=== PATIENT | male | born 1995 | race Caucasian/White ===

== ENCOUNTER 2020-09-11 15:02 | Emergency (ER) | payer OTHER, SELFPAY ==
[2020-09-11 15:31] VITALS: BP 146/90; PULSE 97; RESP 18; TEMP 36.7; O2SAT 97; BMI 21.0
--- NOTE | 2020-09-11 15:43 | XR_ITS ---
EXAMINATION: XR CHEST CLINICAL INFORMATION: Shortness of breath COMPARISON: None TECHNIQUE: Frontal view of the chest was obtained. FINDINGS: No significant abnormality is noted involving the heart, lungs, mediastinum, bony thorax or soft tissues. XR/XR chest 1V IMPRESSION: Unremarkable examination.
--- NOTE | 2020-09-11 15:44 | ECG_ITS ---
Test Reason : CHEST PAIN Blood Pressure : / mmHG Vent. Rate : 084 BPM Atrial Rate : 084 BPM P-R Int : 138 ms QRS Dur : 084 ms QT Int : 356 ms P-R-T Axes : 081 043 051 degrees QTc Int : 420 ms Normal sinus rhythm with sinus arrhythmia Nonspecific T wave abnormality Borderline ECG No previous ECGs available Referred By: Risa Martinez Electronically Signed By:BURT SAMUEL MD
[2020-09-11 16:11] LABS: Basophils Percent Auto 0.5 % (0-2); Eosinophils Absolute Auto 0.2 X10*3/uL (0.0-0.4); Hematocrit 47.9 % (42-52); Hemoglobin 15.8 g/dl (14.0-18.0); Imm Gran Abs Auto 0.01 X10*3/uL (0.00-0.03); Imm Gran Pct Auto 0.2 % (0.0-0.4); Lymphocytes Absolute Auto 1.3 X10*3/uL (1.2-4.9); Lymphocytes Percent Auto 21.5 % (20-40); MANUAL DIFF FLAG NO; Mean Corpuscular Hemoglobin 28.2 pg (27.0-33.0); Mean Corpuscular Volume 85.4 fL (80-98); Monocytes Absolute Auto 0.5 X10*3/uL (0.1-1.2); Monocytes Percent Auto 7.7 % (2-11); Neutrophils Percent Auto 67.1 % (45-73); Platelet Count 243 X10*3/uL (160-400); Red Blood Count 5.61 X10*6/uL (4.60-5.80); White Blood Count 5.9 X10*3/uL (4.8-10.8)
[2020-09-11 16:13] VITALS: RESP 18
--- NOTE | 2020-09-11 16:16 | PC.NURSE ---
patient a&ox3, iv inserted, labs drawn, culture taken by provider, ekg performed, pt has rll in/ex wheezing, vss, will continue to monitor.
[2020-09-11] MEDS: Albuterol/Iprat 2.5/0.5MG 3 ML AMPUL.NEB INHALE (16:26)
--- NOTE | 2020-09-11 16:32 | CT_ITS ---
EXAMINATION: CT ABDOMEN AND PELVIS WITH CONTRAST CLINICAL INFORMATION: Increased difficulty urinating. COMPARISON: None TECHNIQUE: Multidetector volumetric images were obtained from the superior aspect of the liver through the pubic symphysis following administration 85 mL of Omnipaque 350 intravenous contrast. Sagittal and coronal reformatted images were obtained on the technologist's workstation. Oral contrast: No This CT examination was performed using dose optimization techniques as appropriate, variously including the following: *Automated exposure control *Adjustment of mA and/or kV according to patient size (this includes techniques or standardized protocols for targeted exams where dose is matched to indication/reason for exam; i.e. extremities or head) *Use of iterative reconstruction technique DLP: 364 mGy-cm FINDINGS: LUNG BASES: The visualized lung bases are unremarkable. LIVER, GALLBLADDER, AND BILIARY TREE: The liver is normal in size, shape, and attenuation. No focal hepatic lesion or biliary ductal dilatation is present. The gallbladder is unremarkable with no evidence of radiopaque gallstones, gallbladder wall thickening, or obvious pericholecystic inflammatory changes. PANCREAS: Unremarkable. SPLEEN: Unremarkable. ADRENAL GLANDS: Unremarkable. KIDNEYS AND URETERS: The kidneys are normal in size, shape, and attenuation. No hydronephrosis, hydroureter, or calculi seen. No perinephric stranding. BLADDER: Unremarkable. GASTROINTESTINAL TRACT: The small and large bowel are unremarkable. The appendix is unremarkable. ABDOMINAL WALL: No significant hernia is appreciated. LYMPH NODES: Normal. VASCULAR: Unremarkable. PELVIC VISCERA: Unremarkable. OSSEOUS STRUCTURES: Unremarkable. CT/CT abdomen pelvis w con IMPRESSION: No acute abnormality CT scan abdomen and pelvis.
[2020-09-11 16:36] LABS: Anion Gap 14 (12-20); Blood Urea Nitrogen 15 mg/dL (9-16); Calcium 9.7 mg/dL (8.4-10.2); Carbon Dioxide 25 mmol/L (22-29); Chloride 106 mmol/L (96-108); Creatinine Clr Calc Pharmacy 129.8; Estimated Glomerular Filt Rate > 60; Glucose Random 100 mg/dL (60-115); Potassium 4.4 mmol/l (3.3-5.1); Sodium 141 mmol/L (135-145)
[2020-09-11] MEDS: iohexoL 350 MG/ML 100 ML INFUS..BTL IV (17:03)
[2020-09-11 17:37] VITALS: BP 144/74; PULSE 80; RESP 18; TEMP 36.7; O2SAT 97
--- NOTE | 2020-09-11 17:37 | PC.NURSE ---
patient a&ox3, urine obtained, vss, will continue to monitor.
[2020-09-11 17:50] LABS: Glucose Urine UA NEG (NEG); Leukocyte Esterase Urine NEG (NEG); Nitrite Urine NEG (NEG); PH 6.5 (5.0-8.0); Urine Blood TRACE (NEG); Urine Ketones NEG (NEG); Urine Protein NEG (NEG-TRACE)
[2020-09-11 17:51] LABS: Appearance Urine CLEAR; Color Urine YELLOW
[2020-09-11 17:57] LABS: RBC Urine 0-2 /HPF (0); WBC Urine 0 /HPF (0-4)
[2020-09-11 18:07] LABS: INTERNATIONAL NORM RATIO 1.1 (0.9-1.1); Prothrombin Time 13.4 SEC (10.8-13.0)
--- NOTE | 2020-09-11 18:09 | ED_ITS ---
HPI - General Adult General Chief complaint: General Medical Stated complaint: urinary problem Time Seen by Provider: 09/11/20 15:33 Source: patient Mode of arrival: ambulatory Limitations: no limitations History of Present Illness HPI narrative: 25yoM c PMHx of asthma and urethral stricture repair presenting to the ED with complaints of increased urination with small amounts of hematuria, diaphoresis and slow flow of urine for the past 5 months. Also reports within the last week he developed a rash to the tip/head of his penis. Reports he was sexually active with his girlfriend for over 2 years and did not use protection. Denies any other sexual intercourse with any other partners. Denies thoughts of STDs at this time. Patient's 2nd complaint is a cough with wheezing for the past few days. Reports he was tested for COVID on Tuesday which was negative. Denies any other symptoms complaints or concerns at this time. Related Data Previous Rx's Medication Instructions Recorded fluconazole 150 mg PO Q3D #2 tab 09/11/20 levalbuterol HCl [Xopenex] 0.63 mg INHALATION TID PRN #72 ml 09/11/20 nystatin 1 applic TOPICAL QID #30 g 09/11/20 prednisone 40 mg PO DAILY 5 Days #10 tab 09/11/20 Allergies Allergy/AdvReac Type Severity Reaction Status Date / Time seafood Allergy Anaphylaxis Verified 09/11/20 15:25 Review of Systems Review of Systems: Constitutional : No Weight loss, No Fever, + Chills, No Night Sweats, No Fatigue, No Malaise ENT/Mouth : No Hearing loss, No Ear Pain, No Nasal Congestion, No Sinus Pain, No Hoarseness, No sore throat, No Rhinorrhea, No Swallowing Difficulty Eyes: No Eye Pain, No Swelling, No Redness, No Foreign Body, No Discharge, No Vision Changes Cardiovascular : No Chest Pain, No SOB, No Dyspnea on Exertion, No Orthopnea, No Edema, No Palpitations Respiratory : + Cough, No Sputum, + Wheezing, No Smoke Exposure, No Dyspnea Gastrointestinal : No Nausea, No Vomiting, No Diarrhea, No Constipation, No abdominal Pain, No Hematochezia, No Melena Genitourinary : no irregular bleeding, No Dysuria, No Urinary Frequency, + Hematuria, No Urinary Incontinence, No Urgency, No Flank Pain, + Urinary Flow Changes, No Hesitancy Musculoskeletal : No joint pain, No Myalgias, No Joint Swelling Skin : No Skin Lesions, No rash Neuro : No Weakness, No Numbness, No Paresthesias, No Loss of Consciousness, No Dizziness, No Headache Psych : No Anxiety/Panic, No Depression, No SI/HI/AH/VH, No Social Issues, Heme/Lymph: No Bruising, No Bleeding,No Lymphadenopathy Endocrine : No Polyuria, No Polydipsia, No Temperature Intolerance Yes all other systems are reviewed and are negative [facility] Past Medical History Attestation statement: The following information was validated with the patient. Medical History Asthma Urethral stricture Social History Social History Alcohol intake: never Smoking Status: Current every day smoker Use of substances other than those prescribed or required for medical reasons: Yes Substance Use Type: Marijuana Substance Use Frequency: Occasionally Advance Directives: No Advance Directives Information Provided: No Physical Exam Vital Signs: Vital Signs: Last Vital Signs Temp 98.1 F 09/11/20 17:37 Pulse 80 09/11/20 17:37 Resp 18 09/11/20 17:37 BP 144/74 H 09/11/20 17:37 Pulse Ox 97 09/11/20 17:37 Body Mass Index 21.0 vital signs have been reviewed as normal and appeared to be correct. Blood pressure normal. Heart rate normal. Respiration rate normal. Temperature normal. Oxygen saturation normal. Appearance: Alert. Oriented X3. No acute distress. Head: Normal external exam. Normocephalic. Atraumatic. No Kuhn signs noted. No raccoon eyes noted Eyes: PERRLA. EOMI. Conjunctiva and sclera normal. Eyelids normal. ENT: EAC normal. TM's Normal. Pharynx normal. Uvula midline. Moist mucous membranes. No trismus noted. No drooling noted. No muffled voice noted. Neck: Normal inspection. Neck supple. FROM. No adenopathy. Thyroid Normal. No meningeal signs. No neck mass noted. CVS: Normal heart rate and rhythm. Heart sound normal. No murmurs noted. Pulses normal throughout. Respiratory: No respiratory distress. Painless inspiration. Breath sounds normal. Mild expiratory wheezing throughout. No rales/rhonchi noted. Chest nontender. No accessory muscle usage noted or decreased air movement noted. Abdomen: Soft and nontender. Bowel sounds normal in all 4 quadrants. No distention noted. No organomegaly noted. No visible injury noted. : erythema with a curd-like and ulcerations noted. Patsy TELLEZ at bedside at the time of the exam. Back: No CVA tenderness. Full range of motion noted. Skin: Skin warm and dry. Normal skin color. Normal skin turgor. No rashes/lesions/lacerations noted. Extremities: No lower extremity edema. Extremities exhibit normal range of motion. Extremities nontender. Neuro: Oriented X 3. No motor deficit. No sensory deficit. Reflexes normal. Course Course Course Narrative: 15:43 - 25yoM c PMHx of asthma and urethral stricture repair presenting to the ED with complaints of increased urination with small amounts of hematuria, diaphoresis and slow flow of urine for the past 5 months and a rash to the tip/head of his penis. Denies thoughts of STDs at this time. Patient's 2nd complaint is a cough with wheezing for the past few days. Reports he was tested for COVID on Tuesday which was negative. Denies any other symptoms complaints or concerns at this time. - concern for enlarged prostate versus UTI versus gonorrhea/chlamydia versus herpes versus balanitis. Pneumonia versus asthma exacerbation. Plan: Labs, CXR, CT scan of abd/pelvis c IV contrast, us, gonorrhea/chlamydia culture, herpes culture. Provide breathing treatment and re-evaluate. Reevaluation(s) Reevaluation #1: All labs within normal limits. CT scan of abdomen and pelvis within normal limits no acute processes noted. Chest x-ray within normal limits no acute processes noted. UA within normal limits no evidence of UTI or hematuria. Patient has gonorrhea/chlamydia and herpes cultures pending at this time will not treat as patient is not concerned for any STDs at this time. Sexually active with his girlfriend for over 2 years. Denies any additional partners. - will DC home with antifungal medication for balanitis infection along with symptomatic treatment for his asthma exacerbation than instructions to return if any new or worsening symptoms to follow-up with primary care provider along with urologist. Patient understands agrees with this plan. Time: 18:20 Medical Decision Making Medical Records Medical records reviewed: Yes I reviewed the patient's medical records. Lab Data Lab results reviewed: Yes I reviewed the patient's lab results. Result diagrams: 09/11/20 16:04 09/11/20 16:04 Labs: Lab Results 09/11/20 09/11/20 09/11/20 Range/Units 16:04 16:04 16:04 WBC 5.9 (4.8-10.8) X10*3/uL RBC 5.61 (4.60-5.80) X10*6/uL Hgb 15.8 (14.0-18.0) g/dl Hct 47.9 (42-52) % MCV 85.4 (80-98) fL MCH 28.2 (27.0-33.0) pg MCHC 33.0 (31.0-36.0) g/dl RDW 12.0 (11.0-16.0) % Plt Count 243 (160-400) X10*3/uL MPV 11.0 (9.4-12.4) fL Immature Gran % (Auto) 0.2 (0.0-0.4) % Neut % (Auto) 67.1 (45-73) % Lymph % (Auto) 21.5 (20-40) % [place] % (Auto) 7.7 (2-11) % Eos % (Auto) 3.0 (0-4) % Baso % (Auto) 0.5 (0-2) % Lymph # (Auto) 1.3 (1.2-4.9) X10*3/uL [place] # (Auto) 0.5 (0.1-1.2) X10*3/uL Eos # (Auto) 0.2 (0.0-0.4) X10*3/uL Baso # (Auto) 0.0 (0.0-0.2) X10*3/uL Abs Immat Gran (auto) 0.01 (0.00-0.03) X10*3/uL Absolute Neuts (auto) 4.0 (2.0-8.3) X10*3/uL Absolute Nucleated RBC 0.000 (0.0-0.012) X10*3/uL Nucleated RBC % (auto) 0.0 (0.0-0.2) /100WBC Hold Purple Top PT 13.4 H (10.8-13.0) SEC INR 1.1 (0.9-1.1) Sodium 141 (135-145) mmol/L Potassium 4.4 (3.3-5.1) mmol/l Chloride 106 (96-108) mmol/L Carbon Dioxide 25 (22-29) mmol/L Anion Gap 14 (12-20) BUN 15 (9-16) mg/dL Creatinine 0.85 (0.5-1.4) mg/dL Estim Creat Clear Calc 129.8 Estimated GFR > 60 Random Glucose 100 (60-115) mg/dL Calcium 9.7 (8.4-10.2) mg/dL Magnesium 2.0 (1.6-2.6) mg/dL Urine Color Urine Appearance Urine pH (5.0-8.0) Ur Specific [place] (1.005-1.025) Urine Protein (NEG-TRACE) MG/DL Urine Glucose (UA) (NEG) MG/DL Urine Ketones (NEG) MG/DL Urine Blood (NEG) Urine Nitrite (NEG) Ur Leukocyte Esterase (NEG) Urine RBC (0) /HPF Urine WBC (0-4) /HPF Ur Squamous Epith Cells /LPF Urine Bacteria /LPF 09/11/20 09/11/20 Range/Units 16:04 17:36 WBC (4.8-10.8) X10*3/uL RBC (4.60-5.80) X10*6/uL Hgb (14.0-18.0) g/dl Hct (42-52) % MCV (80-98) fL MCH (27.0-33.0) pg MCHC (31.0-36.0) g/dl RDW (11.0-16.0) % Plt Count (160-400) X10*3/uL MPV (9.4-12.4) fL Immature Gran % (Auto) (0.0-0.4) % Neut % (Auto) (45-73) % Lymph % (Auto) (20-40) % [place] % (Auto) (2-11) % Eos % (Auto) (0-4) % Baso % (Auto) (0-2) % Lymph # (Auto) (1.2-4.9) X10*3/uL [place] # (Auto) (0.1-1.2) X10*3/uL Eos # (Auto) (0.0-0.4) X10*3/uL Baso # (Auto) (0.0-0.2) X10*3/uL Abs Immat Gran (auto) (0.00-0.03) X10*3/uL Absolute Neuts (auto) (2.0-8.3) X10*3/uL Absolute Nucleated RBC (0.0-0.012) X10*3/uL Nucleated RBC % (auto) (0.0-0.2) /100WBC Hold Purple Top SEE NOTE PT (10.8-13.0) SEC INR (0.9-1.1) Sodium (135-145) mmol/L Potassium (3.3-5.1) mmol/l Chloride (96-108) mmol/L Carbon Dioxide (22-29) mmol/L Anion Gap (12-20) BUN (9-16) mg/dL Creatinine (0.5-1.4) mg/dL Estim Creat Clear Calc Estimated GFR Random Glucose (60-115) mg/dL Calcium (8.4-10.2) mg/dL Magnesium (1.6-2.6) mg/dL Urine Color YELLOW Urine Appearance CLEAR Urine pH 6.5 (5.0-8.0) Ur Specific [place] 1.020 (1.005-1.025) Urine Protein NEG (NEG-TRACE) MG/DL Urine Glucose (UA) NEG (NEG) MG/DL Urine Ketones NEG (NEG) MG/DL Urine Blood TRACE (NEG) Urine Nitrite NEG (NEG) Ur Leukocyte Esterase NEG (NEG) Urine RBC 0-2 (0) /HPF Urine WBC 0 (0-4) /HPF Ur Squamous Epith Cells NONE /LPF Urine Bacteria NONE /LPF Imaging Data Chest x-ray: Attestation: I personally reviewed and interpreted this imaging study as follows: Radiologist's impression: FINDINGS: No significant abnormality is noted involving the heart, lungs, mediastinum, bony thorax or soft tissues. XR/XR chest 1V IMPRESSION: Unremarkable examination. CT scan - abdomen: Attestation: I personally reviewed and interpreted this imaging study as follows: Radiologist's impression: FINDINGS: LUNG BASES: The visualized lung bases are unremarkable. LIVER, GALLBLADDER, AND BILIARY TREE: The liver is normal in size, shape, and attenuation. No focal hepatic lesion or biliary ductal dilatation is present. The gallbladder is unremarkable with no evidence of radiopaque gallstones, gallbladder wall thickening, or obvious pericholecystic inflammatory changes. PANCREAS: Unremarkable. SPLEEN: Unremarkable. ADRENAL GLANDS: Unremarkable. KIDNEYS AND URETERS: The kidneys are normal in size, shape, and attenuation. No hydronephrosis, hydroureter, or calculi seen. No perinephric stranding. BLADDER: Unremarkable. GASTROINTESTINAL TRACT: The small and large bowel are unremarkable. The appendix is unremarkable. ABDOMINAL WALL: No significant hernia is appreciated. LYMPH NODES: Normal. VASCULAR: Unremarkable. PELVIC VISCERA: Unremarkable. OSSEOUS STRUCTURES: Unremarkable. CT/CT abdomen pelvis w con IMPRESSION: No acute abnormality CT scan abdomen and pelvis. Discharge Plan Discharge Clinical Impression: Balanitis, Asthma exacerbation Patient Disposition: Home, Self-Care Instructions: Jessica (ED) Additional Instructions: You have pending lab results if any are positive you will be contacted within 7 days. Prescriptions: New nystatin 100,000 unit/gram ointment 1 applic topical QID Qty: 30 RF: 0 fluconazole 150 mg tablet 150 mg PO Q3D Qty: 2 RF: 0 prednisone 20 mg tablet 40 mg PO DAILY 5 Days Qty: 10 RF: 0 levalbuterol HCl [Xopenex] 0.63 mg/3 mL solution for nebulization 0.63 mg inhalation TID PRN (Reason: shortness of breath or wheezing) Qty: 72 RF: 0 Referrals: Sergio Ignacio MD [Physician] - 2 days Emeli Whiting [Emergency Nurse] - 2 days Print Language: Uzbek
[2020-09-12 10:29] LABS: CT PCR NOT DETECTED (Not Detect.); NG PCR NOT DETECTED (Not Detect.)
== END 2020-09-11 18:46 | disposition home or self-care (01) ==
PROVIDERS: Physician Assistant Medical; Emergency Provider Emergency Medicine
DX: N48.1 Balanitis (principal); J45.901 Unspecified asthma with (acute) exacerbation; Z79.899 Other long term (current) drug therapy
CPT/HCPCS: 36415; 71045; 74177; 80048; 81001; 83735; 85025; 85610; 87255; 87491; 87591; 93005; 94640; 99284; Q9967

== ENCOUNTER → 2020-09-17 15:55 | Outpatient (BNVA) | payer OTHER, SELFPAY | PROVIDERS: Visit Provider Urology | DX: Z76.89 Persons encountering health services in other specified circumstances (principal) ==

== ENCOUNTER → 2021-01-02 08:49 | Outpatient (BNVA) | payer OTHER, SELFPAY | PROVIDERS: Visit Provider Urology ==

== ENCOUNTER → 2021-01-08 11:07 | Outpatient (BNVA) | payer OTHER, SELFPAY | PROVIDERS: Visit Provider Urology | DX: N35.919 Unspecified urethral stricture, male, unspecified site (principal) | CPT/HCPCS: 52000; 81002 ==

== ENCOUNTER 2021-01-23 10:12 | Day surgery (SDC) | payer OTHER, SELFPAY ==
--- NOTE | 2021-01-22 10:08 | P.CONAN_ITS ---
Documented by User: Mireya Everett 01/22/21 10:09 HPI - Anesthesia Eval Consult details Narrative: 25yo M for Cystoscopy Internal Urethrotomy [facility] Active Problems Active Problems: All Active Problems (Updated 09/17/20 @ 16:22 by Sergio Ignacio MD) Urethral stricture (Acute) Past Medical History Medical History Asthma Urethral stricture Social History Social History Alcohol intake: never Smoking Status: Current every day smoker Substance Use Type: Marijuana Have you been hit, kicked, punched, or otherwise hurt by someone within the past year? If so, by whom?: No Advance Directives: No Advance Directives Information Provided: No Meds Allergies Allergy/AdvReac Type Severity Reaction Status Date / Time seafood Allergy Anaphylaxis Verified 09/11/20 15:25 Exam Exam Date and Time: January 22, 2021 100 Narrative Narrative: EKG 08/2020 Vent. Rate : 084 BPM Atrial Rate : 084 BPM P-R Int : 138 ms QRS Dur : 084 ms QT Int : 356 ms P-R-T Axes : 081 043 051 degrees QTc Int : 420 ms Normal sinus rhythm with sinus arrhythmia Nonspecific T wave abnormality Borderline ECG No previous ECGs available Assessment and Plan Assessment Anesthesia Assessment: Chart Reviewed Documented by User: Emilia Merrill 01/23/21 11:52 [facility] Past Medical History Medical History Asthma Urethral stricture Social History Social History Alcohol intake: never Smoking Status: Current every day smoker Substance Use Type: Marijuana Have you been hit, kicked, punched, or otherwise hurt by someone within the past year? If so, by whom?: No Advance Directives: No Advance Directives Information Provided: No Meds Allergies Allergy/AdvReac Type Severity Reaction Status Date / Time seafood Allergy Anaphylaxis Verified 09/11/20 15:25 Exam Airway Mallampati Class: I TM Dist: >3cm Neck ROM: Full Loose/Missing/Broken Teeth: Yes (Bottom right molar missing) Heart: RRR Lungs: CTA Assessment and Plan Assessment Anesthesia Assessment: Anesthesia Plan Discussed and Chart Reviewed Final Anesthetic Review NPO: Yes ASA Class: II Final Preanesthetic Review: Meds/Allgs Chart Reviewed, Consent Obtained/Reviewed and Anes Risks/Benef Reviewed Patient Risk: Low Procedure Risk: Low Anesthetic Plan Anesthetic Plan: GA Disposition: Standard PACU
[2021-01-23 09:59] VITALS: BMI 29.4
[2021-01-23 10:23] VITALS: BP 136/82; PULSE 80; RESP 18; TEMP 36.1; O2SAT 98
[2021-01-23] MEDS: levoFLOXacin 500 MG TABLET PO (10:30)
[2021-01-23] MEDS: Lactated Ringers 1,000 ML 100 ML IVCONT (11:20)
--- NOTE | 2021-01-23 13:02 | MHC.SHP ---
Pre-Procedural Eval Section A The patient is an INPATIENT: No Changes since office visit: Yes Cold of Flu in the past 2 weeks, Yes New Medical Problems, Yes Changes in Medication and Yes Patient answered all questions The History & Physical has been completed within 30 days and I have reviewed it.: Yes Section B Chief Complaint: urethral stricture Allergies: Allergies Allergy/AdvReac Type Severity Reaction Status Date / Time seafood Allergy Anaphylaxis Verified 09/11/20 15:25 Plan Diagnosis/Plan: Unchanged I have reviewed the history and physical and performed a pertinent physical examination on my patient. No changes have occurred unless specified.
--- NOTE | 2021-01-23 13:07 | W.PM.OPN ---
Operative Note Operative Note Date of Service: 01/23/21 Narrative: PreOperative Diagnosis: Bulbourethral stricture Post Operative Diagnosis: Bulbourethral stricture Procedure: DVIU - direct visualization internal urethrotomy Surgeon: Dr Sergio Ignacio Anesthesia: General Indications for procedure: 25-year-old male. Had procedure performed in 2019. Failed to perform self catheterization. Recurrence of distal bulbourethral stricture. Recommendation for DVIU. Should this fail then reconstructive onlay flap would be required. Procedure: After informed consent was verified the patient was brought to the operating room and placed in a supine position. Anesthesia was administered per protocol. The patient was placed in a modified dorsal lithotomy position and prepped and draped in a sterile fashion. Safety pause time-out was performed. Antibiotics being given. Twenty-two cystoscope was performed. Bulbar urethral stricture seen. Scope was removed. A DVIU scope was placed. Incision was made at 12:00 o'clock position. A Sensor guidewire was placed in order to help guide incision. The stricture was greater than 1 cm in length. We were able to into the bladder. Twenty-four [place] Montoya catheter was placed will remain for 3-4 days Pathology: none Drains: none
[2021-01-23 13:15] VITALS: BP 92/45; PULSE 86; RESP 20; TEMP 36.2; O2SAT 99
[2021-01-23 13:20] VITALS: BP 111/44; PULSE 70; RESP 20; O2SAT 100
[2021-01-23 13:25] VITALS: BP 94/48; PULSE 71; RESP 20; O2SAT 97
[2021-01-23 13:30] VITALS: BP 101/50; PULSE 69; RESP 16; O2SAT 97
[2021-01-23 13:45] VITALS: BP 117/73; PULSE 70; RESP 16; TEMP 36.1; O2SAT 99
== END 2021-01-23 14:35 ==
LOC: HO.SSS 10:12
PROVIDERS: Visit Provider Urology
PROC: 0TND8ZZ Release Urethra, Via Natural or Artificial Opening Endoscopic (ICD-10-PCS; CPT 52276; principal; 2021-01-23 12:30)
DX: N35.912 Unspecified bulbous urethral stricture, male (principal); J45.909 Unspecified asthma, uncomplicated; F12.90 Cannabis use, unspecified, uncomplicated
CPT/HCPCS: 52276; C1769; J1100; J2250; J2405; J3010

== ENCOUNTER → 2021-01-27 14:36 | Outpatient (BNVA) | payer OTHER, SELFPAY | PROVIDERS: Visit Provider Urology ==

== ENCOUNTER → 2021-02-13 10:33 | Outpatient (BNVA) | payer OTHER, SELFPAY | PROVIDERS: Visit Provider Urology | DX: N35.919 Unspecified urethral stricture, male, unspecified site (principal) | CPT/HCPCS: 51701 ==

== ENCOUNTER 2024-01-28 12:59 | Emergency (ER) | payer BC, SELFPAY ==
--- NOTE | ~2024-01-28 | XR_ITS ---
EXAMINATION: XR CHEST CLINICAL INFORMATION: Shortness of breath. COMPARISON: Chest radiograph 09/11/2020. TECHNIQUE: Frontal view of the chest was obtained. FINDINGS: The lungs are adequately expanded. No focal consolidation. No pleural effusion, edema or pneumothorax. The cardiomediastinal silhouette is within normal limits. No acute osseous abnormality. XR/XR chest 1V IMPRESSION: No acute pulmonary disease.
[2024-01-28 13:30] VITALS: BP 114/90; PULSE 119; RESP 17; TEMP 37.1; O2SAT 92; BMI 22.2
--- NOTE | 2024-01-28 13:30 | ED_ITS ---
HPI - General Adult General Chief complaint: Upper Respiratory Symptoms Stated complaint: diff breathing Time Seen by Provider: 01/28/24 13:44 Related Data Previous Rx's ?Medication ?Instructions ?Recorded fluconazole 150 mg tablet 150 mg PO Q3D 2 doses #2 tabs 09/11/20 levalbuterol HCl 0.63 mg/3 mL 0.63 mg (3 mL) inhalation TID PRN 09/11/20 solution for nebulization (Xopenex) shortness of breath or wheezing #72 mL nystatin 100,000 unit/gram topical 1 applic topical QID balanitis #30 09/11/20 ointment grams prednisone 20 mg tablet 40 mg (2 x 20 mg) PO DAILY Asthma 09/11/20 exacerbation 5 days #10 tabs catheter 14 Fr (Female Catheter) #12 ea 09/17/20 levofloxacin 500 mg tablet 500 mg PO DAILY 14 days #14 tabs 01/23/21 tramadol 50 mg tablet 50 mg PO Q6H PRN pain (scale score 01/23/21 4-6) #14 tabs prednisone 50 mg tablet 50 mg PO DAILY 5 days #5 tabs 01/28/24 Allergies Allergy/AdvReac Type Severity Reaction Status Date / Time seafood Allergy Anaphylaxis Verified 04/19/22 12:39 SEAFOOD Allergy Severe THROAT Uncoded 04/19/22 12:39 SWELLING seafood Allergy Unknown throat Uncoded 04/19/22 12:39 swells PMFSH Past Medical History Medical History (Updated 01/29/24 @ 00:01 by Elaine Antoine) Asthma Urethral stricture Social History Social History (System 04/19/22 @ 12:39 by Yohana Bernard) Alcohol intake: never Substance Use Type: Marijuana Advance Directives: No Advance Directives Information Provided: No Physical Exam ED Vital Signs: BMI result Body Mass Index 22.2 Course Course Course Narrative: This is an RME: Additional HPI, ROS, PE not included below [facility]. 28 year old male w/ hx of asthma ( well controlled) presents w/ sob, congestion X 3 days. Smokes weed however hasn't smoked the last 4 days. No sick contacts. Denies cp, fevers, chills, headache, vision changes, dizziness, weakness, nausea, vomiting, diarrhea. PE wheezing throughout --> bronch protocol ordered Plan- viral test xray Medications Administered Discontinued Medications Generic Name Dose Route Start Last Admin Trade Name Freq PRN Reason Stop Dose Admin Acetaminophen 650 mg 01/28/24 15:28 01/28/24 15:42 Acetaminophen 325 Mg Tablet PO 01/28/24 15:29 650 mg ONCE ONE Administration Albuterol Sulfate 2.5 mg/ 0 mg 01/28/24 13:42 01/28/24 13:46 Albuterol/Ipratropium 3 ml INHALE 01/28/24 13:43 1 dose ONCE ONE Administration Albuterol Sulfate 2.5 mg/ 0 mg 01/28/24 15:23 01/28/24 15:27 Albuterol/Ipratropium 3 ml INHALE 01/28/24 15:24 1 dose ONCE ONE Administration Prednisone 60 mg 01/28/24 15:28 01/28/24 15:42 Prednisone 20 Mg Tablet PO 01/28/24 15:29 60 mg ONCE ONE Administration Medical Decision Making Lab Data Labs: Lab Results 01/28/24 Range/Units 13:31 Influenza Type A (PCR) NEGATIVE (Negative) Influenza Type B (PCR) NEGATIVE (Negative) RSV RNA Qual (PCR) NEGATIVE (Negative) SARS-CoV-2 RNA (RT-PCR) NEGATIVE (Negative) Discharge Plan Discharge Clinical Impression: Asthma Patient Disposition: Home, Self-Care Prescriptions: New prednisone 50 mg tablet 50 mg PO DAILY 5 Days Qty: 5 0RF No Action tramadol 50 mg tablet 50 mg PO Q6H PRN (Reason: pain (scale score 4-6)) Qty: 14 0RF levofloxacin 500 mg tablet 500 mg PO DAILY 14 Days Qty: 14 0RF nystatin 100,000 unit/gram ointment 1 applic topical QID Qty: 30 0RF fluconazole 150 mg tablet 150 mg PO Q3D Qty: 2 0RF Rx Instructions: may repeat second dose 72 hrs after first dose if symptoms persist prednisone 20 mg tablet 40 mg PO DAILY 5 Days Qty: 10 0RF levalbuterol HCl [Xopenex] 0.63 mg/3 mL solution for nebulization 0.63 mg inhalation TID PRN (Reason: shortness of breath or wheezing) Qty: 72 0RF (DME) Female Catheter 14 Fr misc See Rx Instructions .ROUTE .MEDSUPPLY Qty: 12 3RF Rx Instructions: As directed - weekly Referrals: [facility] [place] [facility] [place] Group] [facility] [place] [facility]] [facility] [Provider [facility]] Interventions: ED Discharge Assessment Last Done: 01/28/24 16:43 Discharge Date/Time: 01/28/24 16:45 Print Language: Emirati
[2024-01-28 13:46] VITALS: PULSE 110; RESP 16; O2SAT 94
[2024-01-28] MEDS: Albuterol Sulfate 2.5 MG, Albuterol/Iprat 2.5/0.5MG 3 ML 3 ML INHALE ×2 (13:46→15:27)
[2024-01-28 14:43] LABS: Influenza A PCR NEGATIVE (Negative); Influenza B PCR NEGATIVE (Negative); Resp Syncy Virus RNA Qual PCR NEGATIVE (Negative); SARS COV2 PCR INHOUSE NEGATIVE (Negative)
[2024-01-28 15:27] VITALS: PULSE 100; RESP 18; O2SAT 93
[2024-01-28] MEDS: Acetaminophen 325 MG TABLET 650 MG PO (15:42)
[2024-01-28] MEDS: predniSONE 20 MG TABLET 60 MG PO (15:42)
[2024-01-28 15:56] VITALS: BP 151/87; PULSE 116; RESP 20; TEMP 36.9; O2SAT 97
[2024-01-28 16:43] VITALS: BP 151/87; PULSE 116; RESP 20; TEMP 36.9; O2SAT 97
== END 2024-01-28 16:45 | disposition home or self-care (01) ==
PROVIDERS: Physician Assistant; Emergency Provider Student in an Organized Health Care Education/Training Program
DX: J45.909 Unspecified asthma, uncomplicated (principal); R06.02 Shortness of breath
CPT/HCPCS: 0241U; 71045; 94640; 94664; 99284

== ENCOUNTER 2024-05-15 23:58 | Emergency (ER) | payer BC, SELFPAY ==
[2024-05-15 23:59] VITALS: BP 138/87; PULSE 88; RESP 18; TEMP 36.8; O2SAT 97; BMI 20.3
[2024-05-16 01:34] VITALS: BP 151/91; PULSE 100; RESP 18; TEMP 36.7; O2SAT 98
--- NOTE | 2024-05-16 01:38 | MHC.EDTECH ---
This pct just assumed care of patient ,vitals taken and bladder scan done ,Provider aware of result ,Provider at bedside inserting deluca catheter .
--- NOTE | 2024-05-16 01:57 | ED.MALEGU ---
HPI - Male Genitourinary General Chief complaint: Urogenital-Male Stated complaint: cannot urinate Time Seen by Provider: 05/16/24 01:20 Source: patient Mode of arrival: ambulatory Limitations: no limitations History of Present Illness ED Provider: Dr. Khushboo Harvey HPI Narrative: Patient comes to the emergency room complaining of urinary retention. Patient states that it has been 12 hours since he has not been able to pass urine. Patient has history of urethral strictures, patient had a urethrotomy in 2018 and a repeated internal urethrotomy in 2020. Related Data Previous Rx's ?Medication ?Instructions ?Recorded fluconazole 150 mg tablet 150 mg PO Q3D 2 doses #2 tabs 09/11/20 levalbuterol HCl 0.63 mg/3 mL 0.63 mg (3 mL) inhalation TID PRN 09/11/20 solution for nebulization (Xopenex) shortness of breath or wheezing #72 mL nystatin 100,000 unit/gram topical 1 applic topical QID balanitis #30 09/11/20 ointment grams prednisone 20 mg tablet 40 mg (2 x 20 mg) PO DAILY Asthma 09/11/20 exacerbation 5 days #10 tabs catheter 14 Fr (Female Catheter) #12 ea 09/17/20 levofloxacin 500 mg tablet 500 mg PO DAILY 14 days #14 tabs 01/23/21 tramadol 50 mg tablet 50 mg PO Q6H PRN pain (scale score 01/23/21 4-6) #14 tabs prednisone 50 mg tablet 50 mg PO DAILY 5 days #5 tabs 01/28/24 Allergies Allergy/AdvReac Type Severity Reaction Status Date / Time seafood Allergy Anaphylaxis Verified 05/16/24 00:00 SEAFOOD Allergy Severe THROAT Uncoded 04/19/22 12:39 SWELLING seafood Allergy Unknown throat Uncoded 04/19/22 12:39 swells Review of Systems Review of Systems: Constitutional : No Weight loss, No Fever, No Chills, No Night Sweats, No Fatigue, No Malaise ENT/Mouth : No Hearing loss, No Ear Pain, No Nasal Congestion, No Sinus Pain, No Hoarseness, No sore throat, No Rhinorrhea, No Swallowing Difficulty Eyes: No Eye Pain, No Swelling, No Redness, No Foreign Body, No Discharge, No Vision Changes Cardiovascular : No Chest Pain, No SOB, No Dyspnea on Exertion, No Orthopnea, No Edema, No Palpitations Respiratory : No Cough, No Sputum, No Wheezing, No Smoke Exposure, No Dyspnea Gastrointestinal : No Nausea, No Vomiting, No Diarrhea, No Constipation, No abdominal Pain, No Hematochezia, No Melena Genitourinary : No Dysuria, No Urinary Frequency, No Hematuria, No Urinary Incontinence, No Urgency, No Flank Pain, complaining of urinary retention Musculoskeletal : No joint pain, No Myalgias, No Joint Swelling Skin : No Skin Lesions, No rash Neuro : No Weakness, No Numbness, No Paresthesias, No Loss of Consciousness, No Dizziness, No Headache Psych : No Anxiety/Panic, No Depression, No SI/HI/AH/VH, No Social Issues, Heme/Lymph: No Bruising, No Bleeding,No Lymphadenopathy Endocrine : No Polyuria, No Polydipsia, No Temperature Intolerance [facility] Past Medical History Medical History (Updated 05/16/24 @ 02:31 by Khushboo Harvey MD) Asthma Urethral stricture Social History Social History (System 04/19/22 @ 12:39 by Yohana Bernard) Alcohol intake: never Substance Use Type: Marijuana Do you have a plan to hurt others: No Plan Physical Exam Vital Signs: Vital Signs: Last Vital Signs Temp 98.0 F 05/16/24 01:34 Pulse 100 05/16/24 01:34 Resp 18 05/16/24 01:34 BP 151/91 H 05/16/24 01:34 Pulse Ox 98 05/16/24 01:34 O2 Del Method Room Air 05/16/24 01:34 BMI result Body Mass Index 20.3 Const: Other: Appearance: Alert. Oriented X3. Patient is notoriously uncomfortable Eyes: Pupils equal, round and reactive to light. ENT: Pharynx normal. Neck: Normal inspection. Neck supple. No lymph nodes noted. No crepitus CVS: Normal heart rate and rhythm. Pulses normal. Normal S1 and S2 Respiratory: No respiratory distress. Breath sounds normal. No Wheezing. No rales Abdomen: Soft , palpable bladder, bladder scan shows 700 cc of urine in the bladder Skin: Skin warm and dry. Normal skin color. Normal skin turgor. Extremities: No lower extremity edema. No Lacerations. No Rash Neuro: Oriented X 3. No motor deficit. No sensory deficit. Moving all extremities. No slurred speech. CN 2 through 12 grossly intact Psych: calm, cooperative, normal affect Course Course Course Narrative: -I attempted to insert a Montoya catheter and a coude, both 14 and 16 [place]. I could not pass the catheter. I asked my colleage Dr. Gardner to try. HOwerver, we could not pass the catheter despite multiple attempts -I discussed the patient with Dr. Salas, accommodations: Pain medication and Levaquin. She will come in the morning to insert the catheter. I discussed with Dr. Harmon that we will be in touch, if the amount of pain worsens, we will update her -sign-out given to my colleague Dr. Gardner Medications Administered Generic Name Dose Route Start Last Admin Trade Name Freq PRN Reason Stop Dose Admin Levofloxacin 500 mg in 100 mls @ 100 mls/hr 05/16/24 02:04 05/16/24 02:27 Levaquin IV 05/16/24 03:03 100 mls/hr ONCE ONE Administration Discontinued Medications Generic Name Dose Route Start Last Admin Trade Name Freq PRN Reason Stop Dose Admin Lidocaine HCl 20 ml 05/16/24 01:32 05/16/24 02:07 Lidocaine Hcl 2 % Urojet 10 Ml Jel.Pf.Tonya TOPICAL 05/16/24 01:33 20 ml ONCE ONE Administration Morphine Sulfate 4 mg 05/16/24 02:05 05/16/24 02:26 Morphine Sulfate 4 Mg/Ml Cartridge IVPUSH 05/16/24 02:06 4 mg ONCE ONE Administration Protocol Medical Decision Making Differential Diagnosis Differential Diagnoses: The differential diagnosis associated with the presentation includes (Urinary retention, urethral stricture) Admission/Observation Consideration of admission/observation: Escalation of care including admission/observation considered (Patient will likely need a procedure from Urology.) Consult Healthcare Provider Management of the patient was discussed with: Computer Instructor Critical Care Time Critical Care Time Critical Care Time: Yes Total Critical Care Time: 30 Attestation: I have personally provided critical care time. Time includes review of lab data, radiology results, discussion with consultants, and monitoring for potential decompensation. Intervention performed as documented. Discharge Plan Discharge Clinical Impression: Urethral stricture, Acute urinary retention Patient Disposition: Still a Patient Prescriptions: No Action tramadol 50 mg tablet 50 mg PO Q6H PRN (Reason: pain (scale score 4-6)) Qty: 14 0RF levofloxacin 500 mg tablet 500 mg PO DAILY 14 Days Qty: 14 0RF nystatin 100,000 unit/gram ointment 1 applic topical QID Qty: 30 0RF fluconazole 150 mg tablet 150 mg PO Q3D Qty: 2 0RF Rx Instructions: may repeat second dose 72 hrs after first dose if symptoms persist prednisone 20 mg tablet 40 mg PO DAILY 5 Days Qty: 10 0RF levalbuterol HCl [Xopenex] 0.63 mg/3 mL solution for nebulization 0.63 mg inhalation TID PRN (Reason: shortness of breath or wheezing) Qty: 72 0RF prednisone 50 mg tablet 50 mg PO DAILY 5 Days Qty: 5 0RF (DME) Female Catheter 14 Fr misc See Rx Instructions .ROUTE .MEDSUPPLY Qty: 12 3RF Rx Instructions: As directed - weekly Print Language: Greek
[2024-05-16] MEDS: Lidocaine HCl 2 % Urojet 10 ML JEL.PF.APP 20 ML TOPICAL (02:07)
[2024-05-16] MEDS: Morphine Sulfate 4 MG/ML CARTRIDGE IVPUSH (02:26)
[2024-05-16] MEDS: levoFLOXacin/D5W 500 MG/100 ML PIGGYBACK 100 MG IV (02:27)
[2024-05-16 04:28] VITALS: BP 158/84; PULSE 120; RESP 16; TEMP 36.7; O2SAT 96
[2024-05-16 05:21] LABS: Appearance Urine Clear; Color Urine Yellow; Glucose Urine UA Negative (Negative); Leukocyte Esterase Urine Trace (Negative); Nitrite Urine Negative (Negative); Specific Gravity - Urine >= 1.030 (1.005-1.025); UMIC TRIGGER UACC YES; Urine Blood Moderate (2+) (Negative); Urine Ketones Trace mg/dL (Negative); Urine Protein 30 (1+) mg/dL (Neg-Trace)
[2024-05-16 05:23] LABS: Bacteria Urine None Seen (None Seen); Hyaline Casts Urine 0-2 /LPF (0-2); RBC Urine >20 /HPF (0-2); Squamous Epithelial Cell Urine 0-2 /HPF (0-2); UACC Culture Trigger YES
[2024-05-16 06:10] VITALS: BP 123/74; PULSE 79; RESP 18; TEMP 36.8; O2SAT 97
--- NOTE | 2024-05-16 07:19 | PC.NURSE ---
This RN assumed care. Pt noted to be sleeping at this time, no outward distress, breathing even and unlabored.
--- NOTE | 2024-05-16 08:21 | MHC.EDTECH ---
Changed patients linen and gown. Assisted patient with personal hygiene.
[2024-05-16 09:14] VITALS: BP 130/69; PULSE 85; RESP 14; TEMP 36.5; O2SAT 97
--- NOTE | 2024-05-16 09:45 | PC.NURSE ---
Urology at bedside.
[2024-05-16 10:09] VITALS: BP 130/69; PULSE 85; RESP 14; TEMP 36.5; O2SAT 97
== END 2024-05-16 10:10 | disposition home or self-care (01) ==
PROVIDERS: Emergency Medicine; Emergency Provider Emergency Medicine
DX: N35.919 Unspecified urethral stricture, male, unspecified site (principal); R33.9 Retention of urine, unspecified
CPT/HCPCS: 81001; 87086; 96365; 96375; 99284; 99285; J1956; J2270

== ENCOUNTER 2024-09-13 19:45 | Observation (INO) | payer BC, SELFPAY ==
--- NOTE | ~2024-09-13 | XR_ITS ---
EXAMINATION: XR CHEST CLINICAL INFORMATION: Shortness of breath. Cough. COMPARISON: Most recent chest radiograph dated 01/28/2024. TECHNIQUE: 2 views of the chest were obtained. FINDINGS: The lungs are clear. The cardiomediastinal silhouette is normal in size. There is no pleural effusion or pneumothorax. No acute osseous abnormality. XR/XR chest 2V IMPRESSION: No acute cardiopulmonary findings. Electronically signed by: Amadou Vo MD 09/13/2024 09:22 PM [facility] [place]
--- NOTE | 2024-09-13 19:50 | ED_ITS ---
HPI - General Adult General Chief complaint: Upper Respiratory Symptoms Stated complaint: 02 sat low sent from urgent care Time Seen by Provider: 09/13/24 20:25 Source: patient Mode of arrival: ambulatory Limitations: no limitations History of Present Illness ED Provider: JHON ZUNIGA narrative: 29 yo male with PMH of asthma no prior intubations who notes 2 days of cough, chills, wheezing he cannot get any sputum up he feels like it is stuck in his chest. He takes inhalers/nebs with little relief. Sent over by urgent care. complaint: URI Onset (ago): day(s) (2) Location: chest Radiation: non-radiation Severity: moderate Quality: other (tight with wheezing) Relieving factors: none Exacerbating factors: other (movement and coughing) Associated symptoms: cough, fever/chills, malaise and shortness of breath Treatments prior to arrival: other Related Data Previous Rx's ?Medication ?Instructions ?Recorded fluconazole 150 mg tablet 150 mg PO Q3D 2 doses #2 tabs 09/11/20 levalbuterol HCl 0.63 mg/3 mL 0.63 mg (3 mL) inhalation TID PRN 09/11/20 solution for nebulization (Xopenex) shortness of breath or wheezing #72 mL nystatin 100,000 unit/gram topical 1 applic topical QID balanitis #30 09/11/20 ointment grams prednisone 20 mg tablet 40 mg (2 x 20 mg) PO DAILY Asthma 09/11/20 exacerbation 5 days #10 tabs catheter 14 Fr (Female Catheter) #12 ea 09/17/20 levofloxacin 500 mg tablet 500 mg PO DAILY 14 days #14 tabs 01/23/21 tramadol 50 mg tablet 50 mg PO Q6H PRN pain (scale score 01/23/21 4-6) #14 tabs prednisone 50 mg tablet 50 mg PO DAILY 5 days #5 tabs 01/28/24 Allergies Allergy/AdvReac Type Severity Reaction Status Date / Time seafood Allergy Anaphylaxis Verified 09/13/24 19:53 SEAFOOD Allergy Severe THROAT Uncoded 09/13/24 19:53 SWELLING seafood Allergy Unknown throat Uncoded 09/13/24 19:53 swells Review of Systems 2 Review of Systems: Constitutional : No Fever, pos Chills ENT/Mouth : No Hoarseness, No sore throat, No Rhinorrhea Eyes: No Redness, No Discharge, No Vision Changes Cardiovascular : No Chest Pain, positive SOB, positive Dyspnea on Exertion, No Edema Respiratory : positive Cough, No Sputum, positive Wheezing, Gastrointestinal : No Nausea, No Vomiting, No Diarrhea, No abdominal Pain Genitourinary : No Dysuria, No Hematuria Musculoskeletal : No joint pain, No Myalgias Skin : No rash Neuro : No Weakness, No Numbness, No Headache Psych : No anxiety, depression All other systems reviewed and are negative [facility] Past Medical History Attestation statement: The following information was validated with the patient. Source: old records reviewed Medical History Asthma Urethral stricture Social History Social History Alcohol intake: never Substance Use Type: Marijuana Advance Directives: No Advance Directives Information Provided: Yes Physical Exam ED Vital Signs: Vital Signs - 24 hr 09/13/24 19:51 09/13/24 21:18 09/13/24 21:31 Temperature 99 F Pulse Rate 103 H 110 H Respiratory Rate 24 H 18 Blood Pressure 154/96 H Pulse Oximetry 93 92 Oxygen Delivery Method Room Air Room Air 09/13/24 22:04 Temperature 98 F Pulse Rate 138 H Respiratory Rate 20 Blood Pressure 140/77 H Pulse Oximetry 96 Oxygen Delivery Method Room Air BMI result Body Mass Index 20.3 Appearance: Alert. Oriented X3. No acute distress. Eyes: Pupils equal, round and reactive to light. ENT: Pharynx normal. Neck: Normal inspection. Neck supple. CVS: tachyardia heart rate and rhythm. Pulses normal. Respiratory: No respiratory distress. Breath sounds diminished with faint exp wheezes throughout Abdomen: Soft and nontender. Skin: Skin warm and dry. Normal skin color. Normal skin turgor. Extremities: No lower extremity edema. No calf ttp Neuro: Oriented X 3. No motor deficit. No sensory deficit. Course Course Course Narrative: This is a Rapid Medical Exam performed in triage by Damari Evangelista PA-C. Full HPI, ROS and PE to be performed by primary ED provider. 29 yo M w/pmhx asthma presenting to the ED c/o sent in from from hypoxia 84% on RA and tachycardia. 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 +Productive cough x3 days w/SOB PE: satting 91% on RA and HR 136, talking in complete sentences, +insp/exp wheeze appreciated Plan: EKG, labs, CXR, viral testing Reevaluation(s) Reevaluation #1: tachycardia due to nebs Medications Administered Discontinued Medications Generic Name Dose Route Start Last Admin Trade Name Larry PRN Reason Stop Dose Admin Albuterol Sulfate 7.5 mg/ 10 mg 09/13/24 21:11 09/13/24 21:15 Albuterol Sulfate 2.5 mg INHALE 09/13/24 21:12 10 mg ONCE ONE Administration Magnesium Sulfate 2 gm in 50 mls @ 150 mls/hr 09/13/24 20:25 09/13/24 21:38 Magnesium Sulfate/H2o IV 09/13/24 20:44 Infused ONCE ONE Infusion Methylprednisolone Sodium Succinate 60 mg 09/13/24 20:25 09/13/24 20:57 Methylprednisolone Sod Succ 125 Mg/2 Ml Vial IVPUSH 09/13/24 20:26 60 mg ONCE ONE Administration Medical Decision Making Medical Decision Making MDM Narrative: 29 yo male with PMH of asthma here with c/o wheezing, cough x 2 days at this time will start on steroids, obtain CXR, labs, viral panel. IV steroids and IV magnesium ordered. Differential Diagnosis Differential Diagnoses: The differential diagnosis associated with the presentation includes asthma, pneumonia, bronchitis Admission/Observation Consideration of admission/observation: Escalation of care including admission/observation considered still tight and wheezy tachcyardia post nebs 140 will admit for further work up Consult Healthcare Provider Management of the patient was discussed with: Hospitalist (will admit) Lab Data [facility] Lab Attestation statement: I reviewed the patient's lab results. 09/13/24 20:36 09/13/24 20:36 Labs: Lab Results 09/13/24 09/13/24 Range/Units 20:36 20:44 WBC 5.6 (4.8-10.8) X10*3/uL RBC 5.76 (4.60-5.80) X10*6/uL Hgb 16.3 (14.0-18.0) g/dl Hct 47.4 (42.0-52.0) % MCV 82.3 (80.0-98.0) fL MCH 28.3 (27.0-33.0) pg MCHC 34.4 (31.0-36.0) g/dl RDW 11.9 (11.0-16.0) % Plt Count 244 (160-400) X10*3/uL MPV 11.5 (9.4-12.4) fL Immature Gran % (Auto) 0.2 (0.0-0.4) % Neut % (Auto) 58.0 (45-73) % Lymph % (Auto) 18.2 L (20-40) % [place] % (Auto) 14.5 H (2-11) % Eos % (Auto) 8.2 H (0-4) % Baso % (Auto) 0.9 (0-2) % Lymph # (Auto) 1.0 L (1.2-4.9) X10*3/uL [place] # (Auto) 0.8 (0.1-1.2) X10*3/uL Eos # (Auto) 0.5 H (0.0-0.4) X10*3/uL Baso # (Auto) 0.1 (0.0-0.2) X10*3/uL Abs Immat Gran (auto) 0.01 (0.00-0.03) X10*3/uL Absolute Neuts (auto) 3.3 (2.0-8.3) x10*3/uL Absolute Nucleated RBC 0.000 (0.0-0.012) X10*3/uL Nucleated RBC % (auto) 0.0 (0.0-0.2) /100WBC PT 13.5 H (10.9-12.4) SEC INR 1.2 H (0.9-1.1) Sodium 140 (135-145) mmol/L Potassium 3.3 (3.3-5.1) mmol/L Chloride 106 (96-108) mmol/L Carbon Dioxide 26 (22-29) mmol/L Anion Gap 11 L (12-20) BUN 14 (9-16) mg/dL Creatinine 0.85 (0.5-1.4) mg/dL Estim Creat Clear Calc 124.5 Estimated GFR > 60 Random Glucose 139 H (60-115) mg/dL Calcium 9.7 (8.4-10.2) mg/dL Magnesium 2.2 (1.6-2.6) mg/dL Total Bilirubin 0.6 (0.0-1.0) mg/dL Direct Bilirubin 0.2 (0.0-0.5) mg/dL AST 23 (5-37) U/L ALT 34 (0-40) U/L Alkaline Phosphatase 60 (39-117) U/L Troponin I High Sens 8.8 (<3.5-35.0) ng/L B-Natriuretic Peptide < 10 (<100) pg/mL Total Protein 7.6 (6.5-8.0) g/dL Albumin 4.9 (3.5-5.0) g/dL Influenza Type A (PCR) NEGATIVE (Negative) Influenza Type B (PCR) NEGATIVE (Negative) RSV RNA Qual (PCR) NEGATIVE (Negative) SARS-CoV-2 RNA (RT-PCR) NEGATIVE (Negative) Independent Interpretation I performed an independent interpretation of an: EKG and Plain X-Ray (no pneumonia) Interpretation: Rate: 103 Rhythm: sinus tachycardia [place]: left Normal P waves. Normal BARON. incomplete RBBB ST T wave : no SHANI, normal qTC: 434 prior studies: no acute ischemia The study has been interpreted contemporaneously by me. . Radiology Impression Discussion of test interpretation with radiology: I have reviewed the radiologist's reading. External Record Review External record reviewed: Outpatient record Prescription Management I considered prescription management with: Antibiotic and Other Discharge Plan Discharge Clinical Impression: Asthma Patient Disposition: Admitted As Inpatient Prescriptions: No Action tramadol 50 mg tablet 50 mg PO Q6H PRN (Reason: pain (scale score 4-6)) Qty: 14 0RF levofloxacin 500 mg tablet 500 mg PO DAILY 14 Days Qty: 14 0RF nystatin 100,000 unit/gram ointment 1 applic topical QID Qty: 30 0RF fluconazole 150 mg tablet 150 mg PO Q3D Qty: 2 0RF Rx Instructions: may repeat second dose 72 hrs after first dose if symptoms persist prednisone 20 mg tablet 40 mg PO DAILY 5 Days Qty: 10 0RF levalbuterol HCl [Xopenex] 0.63 mg/3 mL solution for nebulization 0.63 mg inhalation TID PRN (Reason: shortness of breath or wheezing) Qty: 72 0RF prednisone 50 mg tablet 50 mg PO DAILY 5 Days Qty: 5 0RF (DME) Female Catheter 14 Fr misc See Rx Instructions .ROUTE .MEDSUPPLY Qty: 12 3RF Rx Instructions: As directed - weekly Print Language: Latvian
[2024-09-13 19:51] VITALS: BP 154/96; PULSE 103; RESP 24; TEMP 37.2; O2SAT 93; BMI 20.3
--- NOTE | 2024-09-13 19:52 | ECG_ITS ---
Test Reason : sob Blood Pressure : / mmHG Vent. Rate : 103 BPM Atrial Rate : 103 BPM P-R Int : 156 ms QRS Dur : 096 ms QT Int : 332 ms P-R-T Axes : 081 036 063 degrees QTc Int : 434 ms Sinus tachycardia RSR' or QR pattern in V1 suggests right ventricular conduction delay Borderline ECG When compared with ECG of 11-SEP-2020 15:54, RSR' pattern in V1 is now Present Referred By: Damari Evangelista Electronically Signed By:Bro Roberts
[2024-09-13] MEDS: methylPREDNISolone Sod Succ 125 MG/2 ML VIAL 60 MG IVPUSH (20:57)
[2024-09-13 20:59] LABS: Basophils Absolute Auto 0.1 X10*3/uL (0.0-0.2); Basophils Percent Auto 0.9 % (0-2); Eosinophils Absolute Auto 0.5 X10*3/uL (0.0-0.4); Eosinophils Percent Auto 8.2 % (0-4); Hematocrit 47.4 % (42.0-52.0); Hemoglobin 16.3 g/dl (14.0-18.0); Imm Gran Abs Auto 0.01 X10*3/uL (0.00-0.03); Imm Gran Pct Auto 0.2 % (0.0-0.4); Lymphocytes Percent Auto 18.2 % (20-40); MANUAL DIFF FLAG NO; Mean Corpuscular HGB Conc 34.4 g/dl (31.0-36.0); Mean Corpuscular Hemoglobin 28.3 pg (27.0-33.0); Mean Corpuscular Volume 82.3 fL (80.0-98.0); Mean Platelet Volume 11.5 fL (9.4-12.4); Monocytes Absolute Auto 0.8 X10*3/uL (0.1-1.2); Monocytes Percent Auto 14.5 % (2-11); Neutrophils Absolute Auto 3.3 x10*3/uL (2.0-8.3); Platelet Count 244 X10*3/uL (160-400); Red Blood Count 5.76 X10*6/uL (4.60-5.80); Red Cell Distribution Width 11.9 % (11.0-16.0); White Blood Count 5.6 X10*3/uL (4.8-10.8)
[2024-09-13] MEDS: Magnesium Sulfate/H2O 2 GM/50 ML PIGGYBACK IV (21:03)
[2024-09-13 21:04] LABS: INTERNATIONAL NORM RATIO 1.2 (0.9-1.1); Prothrombin Time 13.5 SEC (10.9-12.4)
[2024-09-13 21:15] LABS: Alanine Aminotransferase 34 U/L (0-40); Albumin Level 4.9 g/dL (3.5-5.0); Alkaline Phosphatase 60 U/L (39-117); Anion Gap 11 (12-20); Aspartate Amino Transferase 23 U/L (5-37); Bilirubin Direct 0.2 mg/dL (0.0-0.5); Bilirubin Total 0.6 mg/dL (0.0-1.0); Blood Urea Nitrogen 14 mg/dL (9-16); Calcium 9.7 mg/dL (8.4-10.2); Carbon Dioxide 26 mmol/L (22-29); Chloride 106 mmol/L (96-108); Creatinine Clr Calc Pharmacy 124.5; Estimated Glomerular Filt Rate > 60; Glucose Random 139 mg/dL (60-115); Magnesium 2.2 mg/dL (1.6-2.6); Potassium 3.3 mmol/L (3.3-5.1); Sodium 140 mmol/L (135-145); Total Protein 7.6 g/dL (6.5-8.0)
[2024-09-13] MEDS: Albuterol Sulfate 7.5 MG, Albuterol Sulfate (0.083%) 2.5 MG 10 MG INHALE (21:15)
[2024-09-13 21:16] LABS: Troponin-I High Sensitivity 8.8 ng/L (<3.5-35.0)
[2024-09-13 21:18] VITALS: PULSE 110; RESP 18; O2SAT 91
[2024-09-13 21:21] LABS: B Type Natriuretic Peptide < 10 pg/mL (<100)
[2024-09-13 21:31] VITALS: O2SAT 92
[2024-09-13 21:36] LABS: Influenza A PCR NEGATIVE (Negative); Influenza B PCR NEGATIVE (Negative); Resp Syncy Virus RNA Qual PCR NEGATIVE (Negative); SARS COV2 PCR INHOUSE NEGATIVE (Negative)
[2024-09-13 22:04] VITALS: BP 140/77; PULSE 138; RESP 20; TEMP 36.6; O2SAT 96
--- NOTE | 2024-09-13 22:28 | PC.NURSE ---
O2 ambulation trial pt maintained at 94% HR maintained between 140-150
--- NOTE | 2024-09-13 23:57 | P.HPHOSP_ITS ---
History of Present Illness Date of Service: 09/13/24 Chief Complaint: Dyspnea This is a 29-year-old male with pertinent history of asthma not on home oxygen, urethral stricture who presents to the emergency department for evaluation of dyspnea. Patient states his symptoms started 3 days prior to presentation. The symptoms have been progressive and on the day of presentation his symptoms did not relieve with home nebulizer. Has been having dyspnea which is worse with exertion. Has nonproductive cough and associated wheezing. No fever, chills, chest pain, palpitations, abdominal pain, changes in urinary or bowel habits. Patient states he has never been intubated for asthma. Last hospitalized as a child for asthma exacerbation. In the emergency department, patient was given IV magnesium, systemic steroids and breathing treatment. Review of Systems 2 Constitutional: Constitutional: Reports no additional constitutional complaints Cardiovascular: Cardiovascular: Reports no additional cardiovascular complaints and Reports dyspnea on exertion Respiratory: Respiratory: Reports cough, Reports dyspnea on exertion and Reports wheezing Gastrointestinal: Gastrointestinal: Reports no additional gastrointestinal complaints Genitourinary: Genitourinary: Reports no additional male genitourinary complaints Allergic/Immunologic: Allergic/Immunologic: Reports wheezing [facility] Medical History Asthma Urethral stricture Pertinent family history: No family history of early CAD Social History Alcohol intake: never Substance Use Type: Marijuana Advance Directives: No Advance Directives Information Provided: Yes Meds Allergies Allergy/AdvReac Type Severity Reaction Status Date / Time seafood Allergy Anaphylaxis Verified 09/13/24 19:53 SEAFOOD Allergy Severe THROAT Uncoded 09/13/24 19:53 SWELLING seafood Allergy Unknown throat Uncoded 09/13/24 19:53 swells Physical Exam 2 Vital Signs and Narrative: Vital Signs: Last Vital Signs Temp 98 F 09/13/24 22:04 Pulse 138 H 09/13/24 22:04 Resp 20 09/13/24 22:04 BP 140/77 H 09/13/24 22:04 Pulse Ox 96 09/13/24 22:04 O2 Del Method Room Air 09/13/24 22:04 BMI result Body Mass Index 20.3 Middle-aged male lying in bed in mild distress Neck supple, no JVD Tachycardia with regular rhythm, S1-S2 heard Bilateral expiratory wheezing Abdomen soft nontender, no guarding, no rigidity Patient is awake, alert and oriented to self, place, time and person ; no focal motor deficit Psych: Normal mood No pedal edema Results Labs 09/13/24 20:36 09/13/24 20:36 Labs: Laboratory Results - last 24 hr 09/13/24 09/13/24 20:36 20:44 MCV 82.3 MCH 28.3 MCHC 34.4 RDW 11.9 Plt Count 244 MPV 11.5 Immature Gran % (Auto) 0.2 Neut % (Auto) 58.0 Lymph % (Auto) 18.2 L [place] % (Auto) 14.5 H Eos % (Auto) 8.2 H Baso % (Auto) 0.9 Lymph # (Auto) 1.0 L [place] # (Auto) 0.8 Eos # (Auto) 0.5 H Baso # (Auto) 0.1 Abs Immat Gran (auto) 0.01 Absolute Neuts (auto) 3.3 Absolute Nucleated RBC 0.000 Nucleated RBC % (auto) 0.0 PT 13.5 H INR 1.2 H Anion Gap 11 L Estim Creat Clear Calc 124.5 Estimated GFR > 60 Random Glucose 139 H Calcium 9.7 Magnesium 2.2 Total Bilirubin 0.6 Direct Bilirubin 0.2 AST 23 ALT 34 Alkaline Phosphatase 60 Troponin I High Sens 8.8 B-Natriuretic Peptide < 10 Total Protein 7.6 Albumin 4.9 Influenza Type A (PCR) NEGATIVE Influenza Type B (PCR) NEGATIVE RSV RNA Qual (PCR) NEGATIVE SARS-CoV-2 RNA (RT-PCR) NEGATIVE Imaging Radiologist's Impressions: Impressions Chest X-Ray 09/13/24 19:52 IMPRESSION: No acute cardiopulmonary findings. Electronically signed by: Amadou Vo MD 09/13/2024 09:22 PM [facility] Assessment and Plan (1) Acute asthma exacerbation: Status: Acute Plan This is a 29-year-old male with pertinent history of asthma not on home oxygen, urethral stricture who presents to the emergency department for evaluation of dyspnea. #. Acute respiratory distress due to asthma exacerbation: Will admit patient with scheduled and p.r.n. levalbuterol inhalation. Continue systemic steroids. Continue home inhaler. #. Tachycardia and tachypnea due to above. No sepsis Med rec pending DVT prophylaxis: Lovenox Full code Quality Stroke Does the patient have a stroke diagnosis?: No VTE Prior VTE?: No VTE Risk Level:: Medical - moderate - high VTE Device Contraindication: Treatment Not Indicated VTE Drug Contraindication: N/A - Med Ordered
[2024-09-14] MEDS: Enoxaparin Sodium 40 MG/0.4 ML SYRINGE SUBCUT (00:37)
[2024-09-14] MEDS: 0.9 % Sodium Chloride Flush 3 ML SYRINGE IVFLUSH ×2 (00:38→07:59)
[2024-09-14] MEDS: 0.9 % Sodium Chloride 1,000 ML 999 ML IV (00:38)
--- NOTE | 2024-09-14 00:39 | PC.NURSE ---
Patient refused ordered Levalbuterol treatment at this time. Pt denies respiratory complaints at this time. Sinus tachycardia on monitor. Aware of plan to monitor for observation due to dyspnea. Pt states that he feels better than when he came in earlier today. Ambulates with steady gait. Care ongoing by this RN.
[2024-09-14 02:00] VITALS: BP 143/92; PULSE 115; RESP 19; TEMP 36.7; O2SAT 96
--- NOTE | 2024-09-14 03:06 | PC.NURSE ---
Patient requested Levalbuterol treatment at this time. Contacted Kvng Mcleod (RT) regarding this.
[2024-09-14 03:21] VITALS: PULSE 115; RESP 18; O2SAT 95
[2024-09-14] MEDS: levalbuterol HCL 1.25 MG/3 ML VIAL.NEB INHALE ×2 (03:21→07:46)
[2024-09-14 06:11] VITALS: BP 136/90; PULSE 117; RESP 18; TEMP 37.1; O2SAT 94
[2024-09-14 06:56] LABS: Hematocrit 46.1 % (42.0-52.0); Hemoglobin 15.7 g/dl (14.0-18.0); Mean Corpuscular HGB Conc 34.1 g/dl (31.0-36.0); Mean Corpuscular Hemoglobin 28.2 pg (27.0-33.0); Mean Corpuscular Volume 82.9 fL (80.0-98.0); Mean Platelet Volume 11.3 fL (9.4-12.4); Platelet Count 241 X10*3/uL (160-400); Red Blood Count 5.56 X10*6/uL (4.60-5.80); White Blood Count 5.6 X10*3/uL (4.8-10.8)
[2024-09-14 07:16] LABS: Anion Gap 14 (12-20); Blood Urea Nitrogen 9 mg/dL (9-16); Calcium 9.3 mg/dL (8.4-10.2); Carbon Dioxide 21 mmol/L (22-29); Chloride 108 mmol/L (96-108); Creatinine Clr Calc Pharmacy 139.2; Estimated Glomerular Filt Rate > 60; Glucose Random 156 mg/dL (60-115); Potassium 3.7 mmol/L (3.3-5.1); Sodium 139 mmol/L (135-145)
--- NOTE | 2024-09-14 07:22 | PC.NURSE ---
this nurse took over patient care at 7am, patient a&ox3, ambulatory with steady gait, pt sinus tach on rn cardiac rehab, rr equal/non labored, lungs have wheezing throughout, pt states he feel much better and wondering if he is well enough where he can go home with home medications- pt will speak with the hospitalist this morning.
[2024-09-14 07:47] VITALS: PULSE 113; RESP 18; O2SAT 97
[2024-09-14] MEDS: predniSONE 20 MG TABLET 40 MG PO (07:58)
--- NOTE | 2024-09-14 08:00 | PC.NURSE ---
pt medicated per order, RT giving pt updraft, pt given breakfast.
--- NOTE | 2024-09-14 10:16 | PM.DS ---
DS: Providers Provider Date of Service: 09/14/24 Date of admission: 09/13/24 23:55 Date of discharge: 09/14/24 Primary care physician: Unknown Physician DS: Diagnosis Discharge Diagnosis (1) Acute asthma exacerbation: Status: Acute DS: Summary Hospital Course Hospital Course: Admission note HPI This is a 29-year-old male with pertinent history of asthma not on home oxygen, urethral stricture who presents to the emergency department for evaluation of dyspnea. Patient states his symptoms started 3 days prior to presentation. The symptoms have been progressive and on the day of presentation his symptoms did not relieve with home nebulizer. Has been having dyspnea which is worse with exertion. Has nonproductive cough and associated wheezing. No fever, chills, chest pain, palpitations, abdominal pain, changes in urinary or bowel habits. Patient states he has never been intubated for asthma. Last hospitalized as a child for asthma exacerbation. In the emergency department, patient was given IV magnesium, systemic steroids and breathing treatment. Hospital course The patient was admitted for treatment of asthma exacerbation with IV steroids, nebulizers and O2 supplement with good response as he was weaned off O2 and was able to ambulate on RA with no reported dyspnea or chest tightness. He has nebulizers machine and medications at home. Will be discharged on 5 more days of Prednisone, cough medicine and to use his nebulizer every 4-6 hours daily for the next few days , avoid smoking and use his home inhaler as prescribed. Discharge plan Prednisone for 5 more days Use nebulizer every 4-6 hours for the next 3 days then as needed Continue Wixela inhalor 1 puff two times a day Avoid smoking Time Attestation Discharge Coordination Time (in mins): 26 Quality: Safe Use of Opioids Does Pt have an Active Cancer Diagnosis on the Problem List?: No Quality: Stroke Does the patient have a stroke diagnosis?: No Physical Exam Vital Signs: Vital Signs: Last Vital Signs Temp 98.7 F 09/14/24 06:11 Pulse 113 H 09/14/24 07:47 Resp 18 09/14/24 07:47 BP 136/90 H 09/14/24 06:11 Pulse Ox 94 09/14/24 06:11 O2 Del Method Room Air 09/14/24 06:11 BMI result Body Mass Index 20.3 Const: Other: Constitutional : Awake, interactive, not in distress Neck : Normal inspection, Supple Cardiovascular : RRR, no JVP, no lower extremity edema Respiratory : good bilateral air entry, no crackles, scattered exp wheezes Gastrointestinal: soft, lax, Normal bowel sounds, Non tender Skin : Warm, Dry Neurological : Alert & oriented x3, No focal deficit DS: Data Data Completed and Pending Labs on day of discharge: Laboratory Results - last 24 hr 09/13/24 09/13/24 09/14/24 20:36 20:44 05:52 WBC 5.6 5.6 RBC 5.76 5.56 Hgb 16.3 15.7 Hct 47.4 46.1 MCV 82.3 82.9 MCH 28.3 28.2 MCHC 34.4 34.1 RDW 11.9 12.0 Plt Count 244 241 MPV 11.5 11.3 Immature Gran % (Auto) 0.2 Neut % (Auto) 58.0 Lymph % (Auto) 18.2 L Delta % (Auto) 14.5 H Eos % (Auto) 8.2 H Baso % (Auto) 0.9 Lymph # (Auto) 1.0 L Delta # (Auto) 0.8 Eos # (Auto) 0.5 H Baso # (Auto) 0.1 Abs Immat Gran (auto) 0.01 Absolute Neuts (auto) 3.3 Absolute Nucleated RBC 0.000 0.000 Nucleated RBC % (auto) 0.0 0.0 PT 13.5 H INR 1.2 H Sodium 140 139 Potassium 3.3 3.7 Chloride 106 108 Carbon Dioxide 26 21 L Anion Gap 11 L 14 BUN 14 9 Creatinine 0.85 0.76 Estim Creat Clear Calc 124.5 139.2 Estimated GFR > 60 > 60 Random Glucose 139 H 156 H Calcium 9.7 9.3 Magnesium 2.2 Total Bilirubin 0.6 Direct Bilirubin 0.2 AST 23 ALT 34 Alkaline Phosphatase 60 Troponin I High Sens 8.8 B-Natriuretic Peptide < 10 Total Protein 7.6 Albumin 4.9 Influenza Type A (PCR) NEGATIVE Influenza Type B (PCR) NEGATIVE RSV RNA Qual (PCR) NEGATIVE SARS-CoV-2 RNA (RT-PCR) NEGATIVE Imaging Chest x-ray: Radiologist's impression: ITS Impressions Chest X-Ray 09/13/24 19:52 IMPRESSION: No acute cardiopulmonary findings. Electronically signed by: Amadou Vo MD 09/13/2024 09:22 PM EST Workstation: [id number] Discharge Plan Discharge Anticipated Discharge Date/Time: 09/14/24 10:13 Patient Disposition: Home, Self-Care Discharge Diagnosis: asthma exacerbation Referrals: Physician,Unknown J [Primary Care Provider] - 1 Week Discharge Medications: New prednisone 20 mg Tablet 40 mg PO DAILY Qty: 10 0RF benzonatate 100 mg Capsule 100 mg PO TID PRN (Reason: Cough) Qty: 20 0RF Continued fluticasone propion-salmeterol [Wixela Inhub] 100-50 mcg/dose blister with device 1 ea INHALATION BID albuterol sulfate 90 mcg/actuation HFA aerosol inhaler 2 puff inhalation Q6H PRN (Reason: wheezing) (DME) Female Catheter 14 Fr misc See Rx Instructions .ROUTE .MEDSUPPLY Qty: 12 3RF Rx Instructions: As directed - weekly Discharge Orders: Discharge Order (Routine); Ordered 09/14/24 Ordered By: Octavia Padron Diet: Advance to usual diet Activity on Discharge: As tolerated Stand Alone Forms: Patient Portal Discharge page Print Language: Cypriot Care Plan Goals: Prednisone for 5 more days Use nebulizer every 4-6 hours for the next 3 days then as needed Continue Wixela inhalor 1 puff two times a day Avoid smoking Health Concerns: Asthma Plan of Treatment: Prednisone, nebulizer Assessment: as above
--- NOTE | 2024-09-14 10:19 | PHA.MEDREC ---
Addendum entered by Jesika Engel RPh 09/14/24 10:35: Reviewed by [facility] Original Note: Pharmacy Consult ? Medication Reconciliation Pharmacy has completed the medication reconciliation. Spoke to patient to confirm med list.
--- NOTE | 2024-09-14 10:57 | MHC.CM.PN ---
pt dcd home self care pt has own transport home
[2024-09-14 11:15] VITALS: BP 124/72; PULSE 108; RESP 18; TEMP 36.8; O2SAT 96
== END 2024-09-14 11:15 | disposition home or self-care (01) ==
LOC: HO.ED 23:50 → HO.EDOVER 09-14
PROVIDERS: Physician Assistant; Admitting Provider Student in an Organized Health Care Education/Training Program; Emergency Provider Emergency Medicine; Visit Provider Student in an Organized Health Care Education/Training Program
DX: J45.901 Unspecified asthma with (acute) exacerbation (principal); R05.9 Cough, unspecified; R00.0 Tachycardia, unspecified; R06.02 Shortness of breath; Z03.818 Encounter for observation for suspected exposure to other biological agents ruled out; Z79.899 Other long term (current) drug therapy
CPT/HCPCS: 0241U; 36415; 71046; 80048; 80076; 83735; 83880; 84484; 85025; 85027; 85610; 93005; 94640; 96361; 96365; 96372; 96375; 99222; 99285; J1650; J2919; J3475

== ENCOUNTER → 2024-09-13 19:52 | Outpatient (BNV) | payer BC, SELFPAY | PROVIDERS: Admitting Provider Student in an Organized Health Care Education/Training Program; Emergency Provider Emergency Medicine; Visit Provider Internal Medicine Cardiovascular Disease | DX: R00.0 Tachycardia, unspecified (principal) | CPT/HCPCS: 93010 ==

== ENCOUNTER → 2024-09-13 23:55 | Outpatient (BNV) | payer BC, SELFPAY | PROVIDERS: Admitting Provider Student in an Organized Health Care Education/Training Program; Emergency Provider Emergency Medicine; Visit Provider Student in an Organized Health Care Education/Training Program | DX: J45.901 Unspecified asthma with (acute) exacerbation (principal) | CPT/HCPCS: 99222; 99238 ==

== ENCOUNTER 2024-12-14 19:39 | Emergency (ER) | payer BC, SELFPAY ==
--- NOTE | ~2024-12-14 | CT_ITS ---
CLINICAL HISTORY: right flank pain CT abdomen and pelvis without contrast Comparison: CT - CT ABDOMEN PELVIS W CON - 09/11/20 17:07 EST Findings: No consolidation or effusion. Unremarkable gallbladder and solid organs. No urolithiasis. No bowel obstruction, pneumoperitoneum, or pneumatosis. Bladder wall thickening could be secondary to nondistention versus cystitis. Montoya catheter within the bladder. Air within the bladder is likely secondary to recent instrumentation. The bones are intact. IMPRESSION: 1. Bladder wall thickening could be secondary to nondistention versus cystitis. Recommend correlating with urine studies. 2. Air within the bladder is likely secondary to recent instrumentation. This document has been electronically signed by: Freddy Vera MD on 12/14/2024 21:25:48
[2024-12-14 20:01] VITALS: BP 136/80; PULSE 90; RESP 14; TEMP 36.6; O2SAT 99; BMI 20.4
--- NOTE | 2024-12-14 20:04 | ED.GENADULT ---
HPI - General Adult General Chief complaint: Urogenital-Male Stated complaint: sent fr urgent care ? kidney failure Time Seen by Provider: 12/14/24 21:25 Source: patient Mode of arrival: ambulatory Limitations: no limitations History of Present Illness ED Provider: HPI narrative: Patient is status post urethroplasty for the of the right mid urethra on 11/29/2024 was feeling much better for 1 week for last 1 week patient has been having pain in the right flank area and low back no fever no chills no nausea no vomiting Related Data Home Medications ?Medication ?Instructions ?Recorded ?Confirmed albuterol sulfate 90 mcg/actuation 2 puff inhalation Q6H PRN wheezing 09/14/24 09/14/24 aerosol inhaler fluticasone 100 mcg-salmeterol 50 1 ea inhalation BID 09/14/24 09/14/24 mcg/dose blistr powdr for inhalation (Wixela Inhub) ipratropium 0.5 mg-albuterol 3 mg 3 ml inhalation Q6H PRN wheezing 09/14/24 09/14/24 (2.5 mg base)/3 mL nebulization soln Previous Rx's ?Medication ?Instructions ?Recorded catheter 14 Fr (Female Catheter) #12 ea 09/17/20 benzonatate 100 mg capsule 100 mg PO TID PRN Cough #20 caps 09/14/24 prednisone 20 mg tablet 40 mg (2 x 20 mg) PO DAILY #10 tabs 09/14/24 cefdinir 300 mg capsule 300 mg PO BID #20 caps 12/15/24 Allergies Allergy/AdvReac Type Severity Reaction Status Date / Time seafood Allergy Anaphylaxis Verified 12/14/24 20:05 SEAFOOD Allergy Severe THROAT Uncoded 12/14/24 20:05 SWELLING seafood Allergy Unknown throat Uncoded 12/14/24 20:05 swells Review of Systems Review of Systems: Yes all other systems are reviewed and are negative PMFSH Past Medical History Medical History Asthma Asthma Urethral stricture Social History Social History Alcohol intake: never Patient Tobacco Use Status: Never used Tobacco Substance Use Type: Marijuana Advance Directives: No Advance Directives Information Provided: No Do you have a plan to hurt others: No Plan service: No Physical Exam ED Vital Signs: Vital Signs - 24 hr 12/14/24 20:01 12/14/24 21:36 Temperature 97.9 F 98.2 F Pulse Rate 90 86 Respiratory Rate 14 16 Blood Pressure 136/80 137/71 Pulse Oximetry 99 100 Oxygen Delivery Method Room Air Room Air BMI result Body Mass Index 20.4 Appearance: Alert. Oriented X3. No acute distress. Eyes: PERRLA, No Nystagmus ENT: Pharynx normal. Oral Mucosa moist Neck: Normal inspection. Neck supple. CVS: Normal heart rate and rhythm. Pulses normal. Respiratory: No respiratory distress. Equal air entry bilateral, no wheezing/rales/rhonchi Abdomen: Soft and nontender. Bowel sounds are present, no mass palpable, no CVA tenderness back: Diffuse paralumbar tenderness Skin: Skin warm and dry. Normal skin color. Normal skin turgor. Extremities: No lower extremity edema. No calf tenderness Neuro: Oriented X 3. No motor deficit. No sensory deficit.No cerebellar signs , cranial nerves II-XII intact Course Course Course Narrative: RME, this is a rapid medical exam performed by Judson Epstein please refer to primary provider for complete H&P- 29-year-old male with history of urethral stricture presents for evaluation of right flank pain, nausea, subjective fevers and chills. He was a complex medical history including urethral reconstruction 15 days ago at the [facility]. He was not discharged with any antibiotics. Plan for labs, urinalysis, dry CT scan of the abdomen pelvis due to the right flank pain. Medical Decision Making Medical Decision Making [facility] Narrative: Patient with low back pain with status post urethroplasty urine shows nitrite positive WBCs positive will treat with cefuroxime patient's CBC and lactic acid are normal Differential Diagnosis Differential Diagnoses: The differential diagnosis associated with the presentation includes Lab Data [facility] Lab Attestation statement: I reviewed the patient's lab results. 12/14/24 20:46 12/14/24 20:46 Labs: Lab Results 12/14/24 12/14/24 Range/Units 20:46 22:34 WBC 5.2 (4.8-10.8) X10*3/uL RBC 4.80 (4.60-5.80) X10*6/uL Hgb 13.7 L (14.0-18.0) g/dl Hct 40.3 L (42.0-52.0) % MCV 84.0 (80.0-98.0) fL MCH 28.5 (27.0-33.0) pg MCHC 34.0 (31.0-36.0) g/dl RDW 12.1 (11.0-16.0) % Plt Count 245 (160-400) X10*3/uL MPV 10.5 (9.4-12.4) fL Immature Gran % (Auto) 0.2 (0.0-0.4) % Neut % (Auto) 70.4 (45-73) % Lymph % (Auto) 16.9 L (20-40) % Garden % (Auto) 9.8 (2-11) % Eos % (Auto) 2.3 (0-4) % Baso % (Auto) 0.4 (0-2) % Lymph # (Auto) 0.9 L (1.2-4.9) X10*3/uL Garden # (Auto) 0.5 (0.1-1.2) X10*3/uL Eos # (Auto) 0.1 (0.0-0.4) X10*3/uL Baso # (Auto) 0.0 (0.0-0.2) X10*3/uL Abs Immat Gran (auto) 0.01 (0.00-0.03) X10*3/uL Absolute Neuts (auto) 3.7 (2.0-8.3) x10*3/uL Absolute Nucleated RBC 0.000 (0.0-0.012) X10*3/uL Nucleated RBC % (auto) 0.0 (0.0-0.2) /100WBC Sodium 140 (135-145) mmol/L Potassium 3.7 (3.3-5.1) mmol/L Chloride 103 (96-108) mmol/L Carbon Dioxide 27 (22-29) mmol/L Anion Gap 14 (12-20) BUN 16 (9-16) mg/dL Creatinine 0.82 (0.5-1.4) mg/dL Estim Creat Clear Calc 129.7 Estimated GFR > 60 Random Glucose 120 H (60-115) mg/dL Lactic Acid 1.1 (0.5-2.0) mmol/L Calcium 9.7 (8.4-10.2) mg/dL Total Bilirubin 0.3 (0.0-1.0) mg/dL AST 26 (5-37) U/L ALT 29 (0-40) U/L Alkaline Phosphatase 65 (39-117) U/L Total Protein 8.0 (6.5-8.0) g/dL Albumin 4.6 (3.5-5.0) g/dL Lipase 26 (8-78) U/L Urine Color Yellow Urine Appearance Clear Urine pH 6.0 (5.0-9.0) Ur Specific Kaycee >= 1.030 H (1.005-1.025) Urine Protein 100 (2+) H (Neg-Trace) mg/dL Urine Glucose (UA) Negative (Negative) mg/dL Urine Ketones Trace (Negative) mg/dL Urine Blood Moderate (2+) H (Negative) Urine Nitrite Positive H (Negative) Ur Leukocyte Esterase Trace H (Negative) Urine RBC >20 H (0-2) /HPF Urine WBC >50 H (0-5) /HPF Ur Squamous Epith Cells 0-2 (0-2) /HPF Urine Bacteria 4+ (None Seen) Hyaline Casts 0-2 (0-2) /LPF Influenza Type A (PCR) NEGATIVE (Negative) Influenza Type B (PCR) NEGATIVE (Negative) RSV RNA Qual (PCR) NEGATIVE (Negative) SARS-CoV-2 RNA (RT-PCR) NEGATIVE (Negative) Radiology Impression Discussion of test interpretation with radiology: I have reviewed the radiologist's reading. Radiologist Impression: [place] [id number] CT Scan Report Signed Patient: Hunter Deng MR#: [id number] : 1995 Acct:[id number] Age/Sex: 29 / M ADM Date: 12/14/24 Loc: .ED Attending Dr: Ordering Physician: Freddy Epstein Date of Service: 12/14/24 Procedure(s): CT abdomen pelvis wo IV con Accession Number(s): [id number] cc: Freddy Epstein; Physician,Unknown ~ Report Number: [id number]: Total DLP = 497.00 mGy-cm CLINICAL HISTORY: right flank pain CT abdomen and pelvis without contrast Comparison: CT - CT ABDOMEN PELVIS W CON - 09/11/20 17:07 EST Findings: No consolidation or effusion. Unremarkable gallbladder and solid organs. No urolithiasis. No bowel obstruction, pneumoperitoneum, or pneumatosis. Bladder wall thickening could be secondary to nondistention versus cystitis. Montoya catheter within the bladder. Air within the bladder is likely secondary to recent instrumentation. The bones are intact. IMPRESSION: 1. Bladder wall thickening could be secondary to nondistention versus cystitis. Recommend correlating with urine studies. 2. Air within the bladder is likely secondary to recent instrumentation. This document has been electronically signed by: Freddy Vera MD on 12/14/2024 21:25:48 Discharge Plan Discharge Clinical Impression: Urinary tract infection Patient Disposition: Home, Self-Care Instructions: Urinary Tract Infection in Men (ED) Additional Instructions: Drink plenty of fluids Take antibiotic as prescribed Follow up with urologist Prescriptions: New cefdinir 300 mg capsule 300 mg PO BID Qty: 20 0RF No Action fluticasone propion-salmeterol [Wixela Inhub] 100-50 mcg/dose blister with device 1 ea INHALATION BID albuterol sulfate 90 mcg/actuation HFA aerosol inhaler 2 puff inhalation Q6H PRN (Reason: wheezing) prednisone 20 mg Tablet 40 mg PO DAILY Qty: 10 0RF benzonatate 100 mg Capsule 100 mg PO TID PRN (Reason: Cough) Qty: 20 0RF ipratropium-albuterol 0.5 mg-3 mg(2.5 mg base)/3 mL solution for nebulization 3 ml inhalation Q6H PRN (Reason: wheezing) (DME) Female Catheter 14 Fr misc See Rx Instructions .ROUTE .MEDSUPPLY Qty: 12 3RF Rx Instructions: As directed - weekly Print Language: Danish
[2024-12-14 20:53] LABS: MANUAL DIFF FLAG NO
[2024-12-14 20:56] LABS: Basophils Percent Auto 0.4 % (0-2); Eosinophils Absolute Auto 0.1 X10*3/uL (0.0-0.4); Eosinophils Percent Auto 2.3 % (0-4); Hematocrit 40.3 % (42.0-52.0); Hemoglobin 13.7 g/dl (14.0-18.0); Imm Gran Abs Auto 0.01 X10*3/uL (0.00-0.03); Imm Gran Pct Auto 0.2 % (0.0-0.4); Lymphocytes Absolute Auto 0.9 X10*3/uL (1.2-4.9); Lymphocytes Percent Auto 16.9 % (20-40); Mean Corpuscular Hemoglobin 28.5 pg (27.0-33.0); Mean Platelet Volume 10.5 fL (9.4-12.4); Monocytes Absolute Auto 0.5 X10*3/uL (0.1-1.2); Monocytes Percent Auto 9.8 % (2-11); Neutrophils Absolute Auto 3.7 x10*3/uL (2.0-8.3); Neutrophils Percent Auto 70.4 % (45-73); Platelet Count 245 X10*3/uL (160-400); Red Cell Distribution Width 12.1 % (11.0-16.0); White Blood Count 5.2 X10*3/uL (4.8-10.8)
[2024-12-14 21:10] LABS: Lactic Acid 1.1 mmol/L (0.5-2.0)
[2024-12-14 21:16] LABS: Albumin Level 4.6 g/dL (3.5-5.0); Alkaline Phosphatase 65 U/L (39-117); Anion Gap 14 (12-20); Aspartate Amino Transferase 26 U/L (5-37); Bilirubin Total 0.3 mg/dL (0.0-1.0); Blood Urea Nitrogen 16 mg/dL (9-16); Calcium 9.7 mg/dL (8.4-10.2); Carbon Dioxide 27 mmol/L (22-29); Chloride 103 mmol/L (96-108); Creatinine Clr Calc Pharmacy 129.7; Estimated Glomerular Filt Rate > 60; Glucose Random 120 mg/dL (60-115); Lipase 26 U/L (8-78); Potassium 3.7 mmol/L (3.3-5.1); Sodium 140 mmol/L (135-145)
[2024-12-14 21:36] VITALS: BP 137/71; PULSE 86; RESP 16; TEMP 36.8; O2SAT 100
[2024-12-14 21:39] LABS: Influenza A PCR NEGATIVE (Negative); Influenza B PCR NEGATIVE (Negative); Resp Syncy Virus RNA Qual PCR NEGATIVE (Negative); SARS COV2 PCR INHOUSE NEGATIVE (Negative)
[2024-12-14 21:52] LABS: Alanine Aminotransferase 29 U/L (0-40)
--- NOTE | 2024-12-14 22:02 | PC.NURSE ---
pt noted to have chronic deluca at this time, pt attempting to give urine sample at this time.
[2024-12-14 22:41] LABS: Appearance Urine Clear; Color Urine Yellow; Glucose Urine UA Negative (Negative); Leukocyte Esterase Urine Trace (Negative); Nitrite Urine Positive (Negative); Specific Gravity - Urine >= 1.030 (1.005-1.025); UMIC TRIGGER UACC YES; Urine Blood Moderate (2+) (Negative); Urine Ketones Trace mg/dL (Negative); Urine Protein 100 (2+) mg/dL (Neg-Trace)
[2024-12-14 22:46] LABS: Bacteria Urine 4+ (None Seen); Hyaline Casts Urine 0-2 /LPF (0-2); RBC Urine >20 /HPF (0-2); Squamous Epithelial Cell Urine 0-2 /HPF (0-2); UACC Culture Trigger YES; WBC Urine >50 /HPF (0-5)
[2024-12-15] MEDS: cefuroxime axetiL 500 MG TABLET PO (00:24)
[2024-12-15 00:29] VITALS: BP 134/76; PULSE 71; RESP 14; TEMP 37.2; O2SAT 98
== END 2024-12-15 00:30 | disposition home or self-care (01) ==
PROVIDERS: Physician Assistant; Emergency Provider Internal Medicine
DX: N39.0 Urinary tract infection, site not specified (principal); R10.9 Unspecified abdominal pain; M54.50 Low back pain, unspecified; R11.2 Nausea with vomiting, unspecified; R50.9 Fever, unspecified; Z03.818 Encounter for observation for suspected exposure to other biological agents ruled out; Z79.899 Other long term (current) drug therapy
CPT/HCPCS: 0241U; 74176; 80053; 81001; 83605; 83690; 85025; 87040; 87086; 87088; 87186; 99284

== ENCOUNTER → 2024-12-14 20:04 | Outpatient (BNV) | payer BC, SELFPAY | PROVIDERS: Emergency Provider Internal Medicine; Visit Provider Student in an Organized Health Care Education/Training Program | DX: R10.9 Unspecified abdominal pain (principal) | CPT/HCPCS: 74176 ==